=== PATIENT | male | born 1965 | race Hispanic/Latino ===

== ENCOUNTER 2020-03-08 19:06 | Observation (INO) | payer SELFPAY ==
[~2020-03-08 19:06] MED LIST: Iopamidol-370 76% 500 ML 1 ML ONE
[2020-03-08 21:00] LABS: #Basophils 0.1 thou/uL (0.0-0.2); #Eosinphils 0.2 thou/uL (0.0-0.7); #Lymphocytes 2.1 thou/uL (1.20-3.40); #Monocytes 0.8 thou/uL (0.11-0.59); #Neutrophils 8.3 thou/uL (1.40-6.50); %Basophils 0.6 % (0.0-1.0); %Eosinophils 1.7 % (0.0-10.0); %Lymphocytes 18.3 % (21.0-51.0); %Monocytes 7.2 % (0.0-10.0); %Neutrophils 72.3 % (42.0-75.0); Hemoglobin 16.9 g/dL (14.0-18.0); Mean Corpuscular HGB CONC 33.7 g/dL (32.0-36.0); Mean Corpuscular Hemoglobin 31.1 pg (27.0-31.0); Mean Corpuscular Volume 92.3 fL (78.0-98.0); Mean Platelet Volume 8.6 fL (7.4-10.4); Platelet Count 244 thou/uL (130-400); RBC Distribution Width 12.1 % (11.5-14.5); Red Blood Cell (RBC) Count 5.43 mill/uL (4.70-6.10); White Blood Cell (WBC) Count 11.5 thou/uL (4.8-10.8)
[2020-03-08] MEDS ORDERED: Piperacillin/Tazobactam 3.375 GM VIAL ONE (21:05)
[2020-03-08] MEDS ORDERED: Ondansetron PF 4 MG/2 ML Vial ONE (21:05)
[2020-03-08] MEDS ORDERED: Morphine 4 MG/ML VIAL ONE (21:05)
[2020-03-08] MEDS ORDERED: Ketorolac Tromethamine 30 MG/ML VIAL ONE (21:05)
[2020-03-08] MEDS ORDERED: Vancomycin 1 GM/200 ML BAG ONE (21:05)
[2020-03-08 21:18] LABS: ALT (SGPT) 32 U/L (8-55); AST (SGOT) 20 U/L (5-34); Albumin 4.6 g/dL (3.5-5.0); Alkaline Phosphatase 73 U/L (40-110); Anion Gap 15 mmol/L (10-20); BUN (Urea Nitrogen) 14 mg/dL (8.4-25.7); Bilirubin, Total 1.1 mg/dL (0.2-1.2); Calc. Creatinine Clearance 0 mL/min (70-130); Calcium 9.7 mg/dL (7.8-10.44); Carbon Dioxide 26 mmol/L (22-29); Chloride 101 mmol/L (98-107); Estimated GFR-MDRD Greater than 90; Globulin 3.3 g/dL (2.4-3.5); Glucose 95 mg/dL (70-105); Potassium 3.8 mmol/L (3.5-5.1); Protein, Total 7.9 g/dL (6.0-8.3); Sodium 138 mmol/L (136-145)
--- NOTE | 2020-03-08 22:17 | CT ---
CT ABDOMEN AND PELVIS WITH IV CONTRAST: Date: 03/08/2020 PROVIDED CLINICAL HISTORY: Perirectal abscess. FINDINGS: The visualized lung bases are free of significant opacity. Hypodensities are seen involving the liver, the largest of which is compatible with a cyst, and the s maller of which are too small to definitively characterize but likely reflect cysts. The spleen, panc reas, kidneys, and right adrenal gland appear unremarkable. There is a 2.4 cm enhancing left adrenal mass that does not meet criteria for a lipid-rich adrenal adenoma. There is no bowel dilatation, inflammatory fat stranding, free fluid, or free air apparent. The appen bassam appears normal. There is a subcentimeter low density focus involving the expected region of the anus left of midline, compatible with provided clinical history of abscess. There is no inflammatory change seen within th e adjacent ischiorectal fossa fat or perirectal/presacral fat. The regional major vascular structures appear unremarkable. The osseous structures demonstrate no concerning lytic or blastic lesions. IMPRESSION: 1. Findings compatible with the provided clinical history of perirectal abscess. 2. 2.4 cm left adrenal mass, incompletely characterized on the basis of this examination. Follow-up nonemergent CT examination utilizing adrenal washout protocol is recommended. POS: DAI
[2020-03-08] MEDS ORDERED: Ondansetron PF 4 MG/2 ML Vial IVP PRN (23:45)
[2020-03-08] MEDS ORDERED: Ondansetron ODT 4 MG TAB SL PRN (23:45)
[2020-03-08] MEDS ORDERED: Morphine 4 MG/ML VIAL SLOW IVP PRN (23:48)
[2020-03-09 00:50] VITALS: BMI 26.4
[2020-03-09] MEDS: Sodium Chloride 0.9% 1,000 ML IV SCH ×2 (03:39→08:45)
[2020-03-09] MEDS: Piperacillin/Tazobactam 3.375 GM in Sodium Chloride 0.9% 100 ML IVPB SCH ×2 (03:40→08:44)
[2020-03-09 04:28] LABS: SARS-CoV-2 MS2 Positive; SARS-CoV-2 N Gene Negative; SARS-CoV-2 S Gene Negative; SARS-CoV-2 by NAA Not Detected (NotDetected); SARS-CoV-2 orf1ab Negative
[2020-03-09] MEDS ORDERED: FLU VACC QS2020-21(6MOS UP)/PF 60 MCG/0.5 ML SYRINGE IM ONE (09:00)
[2020-03-09] MEDS ORDERED: traMADol HCl 50 MG TAB PO PRN (10:59)
--- NOTE | 2020-03-09 11:39 | OP ---
DATE OF PROCEDURE: 03/09/2020 PROCEDURE: Incision and drainage of left perirectal abscess. PREOPERATIVE DIAGNOSIS: Left perirectal abscess. POSTOPERATIVE DIAGNOSIS: Left perirectal abscess. DESCRIPTION OF PROCEDURE: After informed consent was obtained, the perirectal area was prepped with Betadine and local anesthesia infused through the skin and subcutaneous tissues overlying the fluctuant abscess. A skin incision was made, and the abscess completely drained. A [place] drain was placed into the abscess and secured to the skin with a 3-0 nylon suture. Gauze dressings were placed and secured with tape. Estimated blood loss was minimal. There were no complications. SPECIMEN: Pus for Gram stain and culture. Job ID: [id number]
--- NOTE | 2020-03-09 11:39 | HP ---
CHIEF COMPLAINT: Perirectal pain. HISTORY OF PRESENT ILLNESS: Mr. Pritchard is a 54-year-old man who developed lower pelvic pain, which then became more perianal pain yesterday. He came to the emergency room because the pain was becoming intense. He was given antibiotics and placed on observation as the ER physician did not feel comfortable doing an I and D. He has been more comfortable since receiving pain medications and antibiotics in the emergency room. He denies any fevers or chills. He has not had any drainage. No previous similar episodes. He is otherwise healthy. PAST MEDICAL HISTORY: None. PAST SURGICAL HISTORY: None. FAMILY HISTORY: None. MEDICATIONS: No outpatient medications except for aspirin. ALLERGIES: NO KNOWN DRUG ALLERGIES. HE RECEIVED ZOSYN IN THE EMERGENCY ROOM. LABORATORY DATA: CT of the abdomen and pelvis showed liver cysts, a 2.4 cm left adrenal mass and a small perirectal abscess. White count is mildly elevated at 11.5. Electrolytes and LFTs are unremarkable and COVID is negative. REVIEW OF SYSTEMS: Ten system review of systems is negative except per HPI. PHYSICAL EXAMINATION: VITAL SIGNS: The patient is afebrile since admission. Heart rate 62, respirations 14, 97% saturation on room air, blood pressure 122/63. GENERAL: Reveals a healthy-appearing man in no acute distress. He is not flushed or toxic in appearance. HEENT: He is not jaundiced or icteric. Pupils are equal. Extraocular movements are symmetric. Facial movements are symmetric. NECK: Supple without lymphadenopathy or thyroid nodules. HEART: Regular in its rate and rhythm without murmurs, rubs, or gallops. LUNGS: Clear to auscultation bilaterally. ABDOMEN: Soft, nontender, nondistended without palpable masses or hernias. EXTREMITIES: Warm and well perfused. He has induration in the left perianal area with some central fluctuance consistent with a perirectal abscess. ASSESSMENT: Perirectal abscess. PLAN: I and D at bedside with local anesthesia and drain placement. The diagnosis and recommended treatment were discussed with the patient. He understands and agrees with the plan of care. All of his questions were answered and the procedure was performed as detailed below. He tolerated this well and has a drain sutured in place. He is to perform sitz baths twice a day and after each bowel movement and to call or return if he develops recurrent pain or swelling. He did have immediate relief of the perirectal pain after drainage of the abscess and cultures were sent. He is to follow up in the clinic in 1week's time for drain removal. Job ID: [id number]
[2020-03-09 11:54] VITALS: BP 118/64; TEMP 98.2
== END 2020-03-09 12:35 | disposition home or self-care (01) ==
LOC: ERS 19:06 → SURG A 22:32
PROVIDERS: ADMIT Surgery; ATTEND Surgery
PROC: 0D9P30Z Drainage of Rectum with Drainage Device, Percutaneous Approach (ICD-10-PCS; principal; 2020-03-09)
DX: K61.1 Rectal abscess (principal); E27.8 Other specified disorders of adrenal gland; Z20.828 Contact with and (suspected) exposure to other viral communicable diseases
CPT/HCPCS: 36415; 74177; 80053; 85025; 87070; 87077; 87186; 87205; 87635; 96365; 96366; 96367; 96375; G0378; J1885; J2270; J2405; J2543; J3370; J3490; Q9967; U0003